=== PATIENT | male | born 1930 | race Caucasian/White ===

== ENCOUNTER → 2017-09-15 | Outpatient (CLI) | payer MEDICARE, BC ==
[~2017-09-15] MED LIST: ANTIVERT 25MG25 MG PO; ASPIRIN 81M81 MG/TA2 PO; ASPIRIN E.C. 8181 MG PO; ATOXIMETIN-B1 CAP PO; BACTRIM DS 8001 TAB PO; CALCIUM1 CAP PO; CEPHALEXIN500 M1 PO; DUO-KAPS1 CAP PO; EPA/GLA1 SGL PO; GLUCOSAMINE500 M1 PO; LEVOTHYROXINE PO; PRILOSEC 20MG20 MG PO; QVAR0.04 MG/AC IH; RESTORIL 1515 MG/CAP PO; SYNTHROID0.088 MG/T PO; TUMS500 MG PO; XANAX .25M0.25 MG/TA PO
== END ==
LOC: COL.RAD 07:46
DX: Z01.812 Encounter for preprocedural laboratory examination (principal); N28.1 Cyst of kidney, acquired; N32.3 Diverticulum of bladder; N40.0 Benign prostatic hyperplasia without lower urinary tract symptoms
CPT/HCPCS: Q9967

== ENCOUNTER 2017-12-10 10:32 | Emergency (ER) | payer MEDICARE, BC ==
[~2017-12-10] VITALS: Ht 182.9 cm; Wt 68.2 kg
[2017-12-10] MEDS ORDERED: VITAMIN C500 MG PO (11:02)
[2017-12-10] MEDS ORDERED: SINGULAIR 110 MG/TAB PO (11:03)
[2017-12-10 12:12] LABS: PROTHROMBIN TIME 11.9 SECONDS (9.7-12.8)
[2017-12-10 12:13] LABS: BASO % 0.4 % (0.0-2.0); EOS % 0.6 % (0-4.0); GRAN % 61.7 % (42.2-75.2); HEMOGLOBIN 14.4 g/dl (13.5-18.0); LYMPH # 1.4 (1.2-3.4); LYMPH % 28.4 % (20.0-51.0); MEAN CELL VOLUME 97 fl (80.0-100.0); MEAN CORPUSCULAR HEMOGLOBIN 34 pg (27.0-31.0); MEAN CORPUSCULAR HGB CONC 35 g/dl (33.0-37.0); MONO # 0.4 (0.1-0.6); MONO % 8.7 % (1.7-9.3); PLATELET COUNT 195 K/mm3 (130-400); RED BLOOD COUNT 4.23 M/mm3 (4.20-5.60); REDCELL DISTRIBUTION WIDTH-CV 13.4 % (11.5-14.5)
[2017-12-10 12:21] LABS: ALANINE AMINOTRANSFERASE 27 U/L (21-72); ALBUMIN 3.7 gm/dL (3.5-5.0); ALKALINE PHOSPHATASE 69 U/L (50-136); ANION GAP 9 mmol/L (7-16); AST,SGOT 38 U/L (15-37); BILIRUBIN,TOTAL 0.8 mg/dL (0.0-1.0); BLOOD UREA NITROGEN 23 mg/dL (9-20); CALCIUM 9.6 mg/dL (8.4-10.2); CARBON DIOXIDE 28 mmol/L (22-30); CHLORIDE 101 mmol/L (98-107); CREATININE, serum 0.85 mg/dL (0.66-1.25); GLUCOSE 82 mg/dL (74-106); POTASSIUM 3.9 mmol/L (3.4-5.0); SODIUM 139 mmol/L (137-145); TOTAL PROTEIN 7.3 gm/dL (6.4-8.2)
[2017-12-10 12:23] LABS: C-REACTIVE PROTEIN < 0.5 mg/dL (0.0-0.9)
[2017-12-10 12:32] LABS: TROPONIN-I < 0.012 ng/mL (0.000-0.034)
[2017-12-10 14:20] VITALS: BP 114/71; PULSE 48; TEMP 96.8
== END 2017-12-10 14:30 | disposition home or self-care (01) ==
LOC: COL.ER 10:32
PROVIDERS: Emergency Medicine
DX: R20.2 Paresthesia of skin (principal); I20.9 Angina pectoris, unspecified; K21.9 Gastro-esophageal reflux disease without esophagitis; Z90.49 Acquired absence of other specified parts of digestive tract; Z79.82 Long term (current) use of aspirin

== ENCOUNTER → 2018-10-27 | Outpatient (CLI) | payer MEDICARE, BC ==
[~2018-10-27] MED LIST changes: +SINGULAIR 110 MG/TAB PO; +VITAMIN C500 MG PO
== END ==
LOC: COL.CARD 07:42
DX: R06.02 Shortness of breath (principal)